=== PATIENT | female | born 1970 | race Caucasian/White ===

== ENCOUNTER 2019-04-14 06:24 | Emergency (ER) | payer OTHER ==
[~2019-04-14] VITALS: Ht 162.6 cm; Wt 65.9 kg
[2019-04-14] MEDS ORDERED: BUPIVACAINE HCL/PF 0.25% 10 ML VIAL INJ ONE (08:00)
[2019-04-14] MEDS ORDERED: LIDOCAINE/PF 1% 2 ML VIAL IM ONE (08:00)
[2019-04-14] MEDS ORDERED: DOXYCYCLINE HYCLATE 100 MG CAPSULE PO ONE (08:00)
[2019-04-14] MEDS ORDERED: CefTRIAXone SODIUM 1 GM/VIAL IM ONE (08:00)
[2019-04-14 08:34] VITALS: BP 123/76
== END 2019-04-14 09:19 | disposition home or self-care (01) ==
LOC: EMS 06:27
DX: L02.415 Cutaneous abscess of right lower limb (principal); Z98.51 Tubal ligation status; Z88.2 Allergy status to sulfonamides
CPT/HCPCS: 10060; 96372; 99283; J0696; J3490 ×2

== ENCOUNTER 2019-04-16 20:28 | Emergency (ER) | payer SELFPAY ==
[~2019-04-16] VITALS: Ht 162.6 cm; Wt 65.9 kg
[2019-04-16] MEDS ORDERED: CEPH500 PO (20:49)
[2019-04-16] MEDS ORDERED: DOXY100C PO (20:49)
[2019-04-16 22:00] VITALS: BP 130/67
== END 2019-04-16 22:45 | disposition home or self-care (01) ==
LOC: EMS 20:29
DX: I10 Essential (primary) hypertension (principal); Z48.00 Encounter for change or removal of nonsurgical wound dressing; Z98.51 Tubal ligation status; Z88.2 Allergy status to sulfonamides